=== PATIENT | female | born 1995 | race Caucasian/White ===

== ENCOUNTER → 2016-08-24 | Outpatient (CLI) | payer OTHER ==
[~2016-08-24] MED LIST: IOPAMIDOL (ISOVUE-300) 50 ML VIAL IV ONE
--- NOTE | 2016-08-24 18:59 | CT ---
CT Abdomen and Pelvis With Contrast INDICATION: Diffuse abdominal pain. TECHNIQUE: 1.5 mm contiguous helical axial scanning through the abdomen and pelvis after the uneventf ul administration of oral and IV contrast. Patient received 90 mL of Isovue-300 without complication. Radiation dose reduction technique was utilized. FINDINGS: Lung bases are clear. The liver, spleen, pancreas, adrenals, and kidneys are unremarkable. Small bowel and colon are unremarkable. Appendix is visualized and normal. Uterus and bladder are nor mal. There is diffuse mesenteric adenopathy increased by number and mild edema/mistiness of the mesentery. Bones are unremarkable. IMPRESSION: Nonspecific mesenteric edema and adenopathy. Differential would include inflammatory gerald l disease and lymphoma. Endoscopies may be helpful for further evaluation in this patient with diffus e abdominal pain. Critical results relayed by Dr. Marino to Dr. Pabon on August 24, 2016 at 1852 hours.
== END ==
LOC: FIMAGING 16:37
DX: R60.9 Edema, unspecified (principal); R59.9 Enlarged lymph nodes, unspecified
CPT/HCPCS: Q9967

== ENCOUNTER → 2016-10-07 | Outpatient (CLI) | payer OTHER | LOC: FIMAGING 07:36 | PROVIDERS: ATTEND Internal Medicine Infectious Disease | DX: D70.3 Neutropenia due to infection (principal); I88.0 Nonspecific mesenteric lymphadenitis ==